=== PATIENT | female | born 1970 | race Caucasian/White ===

== ENCOUNTER 2022-07-13 12:43 | Emergency (ER) | payer OTHER ==
[~2022-07-13] VITALS: Ht 162.6 cm; Wt 84.4 kg
[2022-07-13] MEDS ORDERED: LOREEV XR1 MG PO (13:07)
[2022-07-13] MEDS ORDERED: METOPROLOL SUCC50 MG PO (13:08)
[2022-07-13] MEDS ORDERED: METOCLOPRAMIDE10 MG (13:09)
[2022-07-13] MEDS ORDERED: AMRIX15 MG (13:09)
[2022-07-13] MEDS ORDERED: OMEPRAZOLE MAGN20 MG PO (13:10)
[2022-07-13] MEDS ORDERED: ZOCOR80 MG (13:10)
[2022-07-13] MEDS ORDERED: METAXALONE800 MG PO (16:10)
[2022-07-13] MEDS ORDERED: CELEBREX200MG PO (16:10)
== END 2022-07-13 16:35 | disposition home or self-care (01) ==
LOC: ER 12:43
DX: M54.2 Cervicalgia (principal); M62.838 Other muscle spasm

== ENCOUNTER 2022-12-24 10:55 | Outpatient (CLI) | payer OTHER ==
[~2022-12-24 10:55] MED LIST: AMRIX15 MG; CELEBREX200MG PO; LOREEV XR1 MG PO; METAXALONE800 MG PO; METOCLOPRAMIDE10 MG; METOPROLOL SUCC50 MG PO; OMEPRAZOLE MAGN20 MG PO; ZOCOR80 MG
== END 2022-12-24 11:00 | disposition home or self-care (01) ==
LOC: SONOGRAMA 10:55
PROVIDERS: ATTEND Pathology Anatomic Pathology & Clinical Pathology
DX: D34 Benign neoplasm of thyroid gland (principal); E06.3 Autoimmune thyroiditis